=== PATIENT | female | born 1965 | race Caucasian/White ===

== ENCOUNTER 2017-06-08 16:08 | Inpatient (IN) | payer OTHER ==
--- NOTE | 2017-06-08 16:59 | XRAY ---
Indication: Sepsis. Comparison: None Portable chest slightly rotated/side bent. Patient's chin partially obscures the left lung apex. Visualized lungs are clear. Heart is not enlarged. Stent mesh graft projects over the superior mediastinum and there is a left-sided Port-A-Cath. Bony thorax intact with mild osteopenia and old left rib fractures. Impression: Nonacute chest with chronic features.
[2017-06-08 17:30] LABS: Bilirubin SMALL (NEGATIVE); Blood 50 Ery/ul (0-5); COMPLETE URINE MICROSCOPIC? YES; Collection Type VOID; Glucose TRACE mg/dL (NEGATIVE); Leukocyte Esterase TRACE (NEGATIVE)
[2017-06-08] MEDS ORDERED: PHARMACY DOSING REQUIRED: VANCOMYCIN MC ONE (17:30)
[2017-06-08 17:31] LABS: Bacteria MODERATE /HPF (NEGATIVE); Epithelial Cells MODERATE /HPF (FEW)
[2017-06-08] MEDS: D5W/0.45NS W/ 20mEq KCl 1000 ML 1,000 ML IV SCH (17:55)
[2017-06-08] MEDS: ROCEPHIN 1 Gm-D5w 50 ml Bag** 1 G/50 ML IVPB IV SCH (17:58)
[2017-06-08 18:16] LABS: Mean Cell Volume 79.4 fl (78-100); Mean Corpuscular Hemoglobin 25.9 pg (26-32); Mean Platelet Volume 8.9 fl (6-9.5); Platelet Count 292 K/mm3 (150-450); Red Blood Count 3.78 M/mm3 (4.1-5.4); Red Cell Distribution Width 17.6 % (11.5-14.0); White Blood Count 10.6 K/mm3 (4.0-10.5)
[2017-06-08 18:36] LABS: ALBUMIN 1.7 g/dL (3.4-5.0); ALKALINE PHOSPHATASE 155 U/L (46-116); ANION GAP 10.7 MEQ/L (5-15); BLOOD UREA NITROGEN 8 mg/dL (9-20); CHLORIDE 95 mEq/L (98-107); Glucose 135 MG/DL (70-110); Potassium 3.4 mEq/L (3.5-5.1); SGOT/AST 33 U/L (15-37); SGPT/ALT 15 U/L (12-78); SODIUM 131 mEq/L (136-145); Total Protein 7.3 gm/dL (6.4-8.2)
[2017-06-08] MEDS ORDERED: Vancomycin 1GM/ Ns 250ML*** 250 ML IV SCH (19:00)
[2017-06-08 19:05] LABS: Platelet Estimate NORMAL (NORMAL); Total Cells Counted 100
[2017-06-08] MEDS ORDERED: TYLENOL EXTRA STRENGTH 500 MG PO PRN (19:20)
[2017-06-08] MEDS: NORCO 5/325 MG PO PRN (20:15)
[2017-06-08] MEDS ORDERED: SENOKOT 8.6 MG ONE (20:49)
[2017-06-08] MEDS: Protonix 40MG Tablet PO SCH (22:33)
[2017-06-08] MEDS: Cyclobenzaprine 10 MG PO SCH (22:33)
[2017-06-08] MEDS: Pepcid 20 MG PO SCH (22:34)
[2017-06-08] MEDS: xanAX 0.25 MG PO SCH (22:34)
[2017-06-08] MEDS: Senokot-S Tablet PO SCH (23:44)
[2017-06-09] MEDS: D5W/0.45NS W/ 20mEq KCl 1000 ML 1,000 ML IV SCH ×2 (03:58→14:32)
[2017-06-09] MEDS: NORCO 5/325 MG PO PRN ×2 (07:02→16:40)
[2017-06-09] MEDS ORDERED: CETIRIZINE HCL PO PRN (07:52)
[2017-06-09] MEDS: VANCOCIN 1 GM VIAL*** 1 GM in Sodium Chloride 0.9% 250 ML 250 ML IV SCH ×2 (08:13→22:14)
[2017-06-09] MEDS: ULTRAM 50 MG PO SCH ×3 (08:16→22:09)
[2017-06-09] MEDS ORDERED: Sodium Chloride 0.9% 500 ML 500 ML IV ONE (09:07)
[2017-06-09] MEDS ORDERED: Duragesic 50MCG Patch TOP SCH (10:00)
[2017-06-09] MEDS ORDERED: MOXIFLOXACIN HCL 400 MG PO SCH (10:00)
[2017-06-09] MEDS ORDERED: POTASSIUM CHLORIDE 20 MEQ PO SCH (10:00)
[2017-06-09] MEDS: CLARITIN 10 MG PO SCH (10:13)
[2017-06-09] MEDS: Klor Con 10 MEQ PO SCH (10:13)
[2017-06-09] MEDS: Pepcid 20 MG PO SCH ×2 (10:13→22:08)
[2017-06-09] MEDS: Levofloxacin 500 MG Tablet PO SCH (10:13)
[2017-06-09] MEDS: Protonix 40MG Tablet PO SCH ×2 (10:15→22:09)
[2017-06-09] MEDS: Cyclobenzaprine 10 MG PO SCH ×3 (10:15→22:08)
[2017-06-09] MEDS: Senokot-S Tablet PO SCH ×2 (10:15→22:09)
[2017-06-09] MEDS: ROCEPHIN 1 Gm-D5w 50 ml Bag** 1 G/50 ML IVPB IV SCH (10:18)
[2017-06-09] MEDS ORDERED: LASIX 20 MG PO ONE (20:00)
[2017-06-09] MEDS: xanAX 0.25 MG PO SCH (22:09)
[2017-06-10] MEDS ORDERED: TROUGH DRUG LEVELS IJ ONE (07:30)
[2017-06-10] MEDS: D5W/0.45NS W/ 20mEq KCl 1000 ML 1,000 ML IV SCH ×3 (07:36→20:17)
[2017-06-10] MEDS: ULTRAM 50 MG PO SCH (07:36)
[2017-06-10 07:43] LABS: Mean Cell Volume 80.9 fl (78-100); Platelet Count 168 K/mm3 (150-450); Red Blood Count 3.19 M/mm3 (4.1-5.4); Red Cell Distribution Width 17.9 % (11.5-14.0)
[2017-06-10] MEDS: CLARITIN 10 MG PO SCH (08:50)
[2017-06-10] MEDS: Klor Con 10 MEQ PO SCH (08:51)
[2017-06-10] MEDS: Pepcid 20 MG PO SCH (08:51)
[2017-06-10] MEDS: Levofloxacin 500 MG Tablet PO SCH (08:51)
[2017-06-10] MEDS: Senokot-S Tablet PO SCH (08:51)
[2017-06-10] MEDS: Protonix 40MG Tablet PO SCH (08:51)
[2017-06-10] MEDS: Cyclobenzaprine 10 MG PO SCH (08:51)
[2017-06-10 08:53] LABS: White Blood Count 37.8 K/mm3 (4.0-10.5)
[2017-06-10 09:08] LABS: ALBUMIN 1.3 g/dL (3.4-5.0); ALKALINE PHOSPHATASE 123 U/L (46-116); ANION GAP 9.9 MEQ/L (5-15); BLOOD UREA NITROGEN 6 mg/dL (9-20); CHLORIDE 98 mEq/L (98-107); Carbon Dioxide 25.6 mEq/L (21-32); Glucose 117 MG/DL (70-110); Potassium 3.5 mEq/L (3.5-5.1); SGOT/AST 33 U/L (15-37); SGPT/ALT 17 U/L (12-78); SODIUM 130 mEq/L (136-145); Total Protein 5.7 gm/dL (6.4-8.2)
[2017-06-10] MEDS: ROCEPHIN 1 Gm-D5w 50 ml Bag** 1 G/50 ML IVPB IV SCH (09:18)
[2017-06-10] MEDS: VANCOCIN 1 GM VIAL*** 1 GM in Sodium Chloride 0.9% 250 ML 250 ML IV SCH ×2 (09:39→19:37)
[2017-06-10 10:36] LABS: BAND 8 % (0.0-2.0); Total Cells Counted 100
[2017-06-10 10:37] LABS: ANISOCYTOSIS 1+; Poikilocytosis 1+; Polychromasia 1+; Schistocytes 1+
[2017-06-10 10:42] LABS: Platelet Estimate NORMAL (NORMAL)
[2017-06-10 16:17] LABS: Collection Type CATH; Glucose NEGATIVE (NEGATIVE); Leukocyte Esterase NEGATIVE (NEGATIVE)
[2017-06-10 16:18] LABS: Bacteria FEW /HPF (NEGATIVE); Bilirubin NEGATIVE (NEGATIVE); COMPLETE URINE MICROSCOPIC? YES; Epithelial Cells FEW /HPF (FEW); Mucus MODERATE /HPF (NEGATIVE)
[2017-06-11] MEDS: D5W/0.45NS W/ 20mEq KCl 1000 ML 1,000 ML IV SCH ×3 (06:04→19:38)
[2017-06-11] MEDS: VANCOCIN 1 GM VIAL*** 1 GM in Sodium Chloride 0.9% 250 ML 250 ML IV SCH ×2 (08:49→20:38)
[2017-06-11] MEDS ORDERED: PHARMACY DOSING REQUEST MC ONE (09:03)
[2017-06-11] MEDS ORDERED: Ativan 2 MG/1 ML VIAL IV PRN (09:04)
[2017-06-11] MEDS: WATER IV SCH ×2 (10:35→23:21)
[2017-06-11] MEDS: DEXTROSE IV SCH ×2 (10:35→23:21)
[2017-06-11] MEDS: NEBCIN IV SCH ×2 (10:35→23:21)
[2017-06-11] MEDS: CLINDAMYCIN-D5W 900 MG/50 ML*** 900 MG/50 ML BAG IV SCH ×2 (13:44→22:31)
[2017-06-11 22:00] VITALS: BP 65/45; PULSE 108; O2SAT 92
--- NOTE | 2017-06-12 09:41 | HP ---
CHIEF COMPLAINT: Lethargy, dehydration, weakness, unable to care for herself in the home, esophageal cancer. HISTORY OF PRESENT ILLNESS: The patient is a 52 year-old white female who has been struggling with esophageal cancer. She has tried multiple treatments with radiation and even had esophagectomy. The patient had been in the hospital last weekend at [facility]. Blood cultures were obtained. She was initially started on antibiotic and released home. The family took the patient from there to [facility] where evaluation was done and the outcome was the same. She was sent home on TPN. They presented to my office with the complaints of inability for the patient to get up and ambulate. They felt that they were unable to care for her in the home and they wished further evaluation and management more aggressive at this time. The patient at this point in time has not been declared a No Code. We therefore admitted her to the hospital for aggressive medical management. PAST MEDICAL/SURGICAL HISTORY: Otherwise remarkable for anxiety, gastroesophageal reflux disease and arthritis. HOME MEDICATIONS: Alprazolam 0.25 mg PRN anxiety, Cetirizine 10 mg a day, cyclobenzaprine 10 mg t.i.d., famotidine 20 mg b.i.d., Fentanyl 50 mcg patch, hydrocodone 5/325 mg PRN pain, Lasix 20 mg a day, moxifloxacin 400 mg daily for the infection which is felt to likely be sepsis. Omeprazole 20 mg daily, potassium 20 mEq daily, Senna daily, tramadol 50 mg every 8 hours PRN pain. ALLERGIES: MORPHINE, IBUPROFEN. PHYSICAL EXAMINATION: Revealed a frail appearing, disheveled appearing white female who is slumped over in her chair. VITAL SIGNS: Height 5'7", weight was refused as she was in a wheelchair, temperature was noted to be 99.8F, blood pressure 114/62. She was somewhat tachycardic. HEENT: Normocephalic, atraumatic. Pupils equal round reactive to light. Oropharynx is dry. NECK: Supple without lymphadenopathy, thyromegaly or JVD. CHEST: Clear to auscultation. HEART: Tachycardic without significant murmurs, rubs or gallops heard. ABDOMEN: Soft. EXTREMITIES: Without clubbing, cyanosis or edema. NEUROLOGIC: The patient was confabulating. There were no focal deficits noted. ASSESSMENT: A patient with possible sepsis. She was admitted to the hospital directly from the office for IV antibiotics. She was to be placed on IV Vancomycin and Rocephin while the cultures were still pending. At this time will attempt to obtain the culture results from [facility] that was done five days ago. She will be placed on IV fluids and oxygen support as needed. The family was discussed the terminal nature of her illness. They were also suggested to obtain a Medical Power Of Wastewater Treatment Operator to make decisions in her stead as she is currently unable to continue to make those decisions for herself. In the interim will keep giving aggressive medical management until instructed otherwise.
[2017-06-13] MEDS ORDERED: TROUGH DRUG LEVELS IJ ONE (09:30)
--- NOTE | 2017-06-28 13:55 | DS ---
DATE OF : 06/10/2017 CAUSE OF /FINAL DIAGNOSIS: ESOPHAGEAL CANCER METASTATIC. HOSPITAL COURSE: The patient is a 52 year-old white female who was seen in the office with severe weakness, inability to be cared for at home any longer. She was brought into the hospital for possibility of pneumonia. She was given IV fluids and IV antibiotics. However the patient rapidly deteriorated. She has known history of esophageal cancer which she has been struggling with for the past two years. She had worsening of her condition to the point now where she is unable to swallow any longer. Even having difficulty with water. The patient did do better initially with IV fluid hydration however her white blood cell count increased to 36,000 despite antibiotic coverage empirically. She was seen earlier at another facility at [facility] and had blood cultures which showed Strep Viridans which was sensitive to all medications tested. However the patient was not responding despite this optimistic report on the blood culture. In fact her white blood cell increased to 36,000 by the morning of 06/10/2017. The patient had white blood cell count increasing to 36,000. She had more trouble with her respirations and with apparent sepsis, she was transferred to the ICU. After a long discussion with the patient's and family members otherwise were informed of the grim prognosis and they had decide at this point to go ahead and make her supportive care only. It was not long afterwards when the patient continued to deteriorate to the point where she on evening of 06/11/2017. was expected and unavoidable by ordinary means necessary for her care and the family was not interested any longer with any extraordinary care including intubation or more aggressive care.
== END 2017-06-12 02:15 | disposition expired | DRG 374 ==
LOC: MED SURG 16:08 → ICU 06-10 05:25
PROVIDERS: ADMIT Family Medicine; ATTEND Family Medicine
DX: C15.9 Malignant neoplasm of esophagus, unspecified (principal); A41.9 Sepsis, unspecified organism; F41.9 Anxiety disorder, unspecified; K21.9 Gastro-esophageal reflux disease without esophagitis; M19.90 Unspecified osteoarthritis, unspecified site; Z79.899 Other long term (current) drug therapy
CPT/HCPCS: 36415; 71010; 80053; 80202; 81000; 85025; 87086; 93268; 94760; J0696; J1642; J3260; J3370; A9270-GY